=== PATIENT | female | born 1940 | race Caucasian/White ===

== ENCOUNTER 2017-03-13 10:32 | Emergency (ER) | payer OTHER, BC ==
[~2017-03-13] VITALS: Ht 152.4 cm; Wt 87.6 kg
[2017-03-13 10:38] VITALS: BP 156/85
== END 2017-03-13 14:16 | disposition home or self-care (01) ==
LOC: ED 10:32
DX: M25.562 Pain in left knee (principal); M19.90 Unspecified osteoarthritis, unspecified site
CPT/HCPCS: Q0092